=== PATIENT | female | born 1950 ===

== ENCOUNTER 2021-04-26 09:15 | Inpatient (IN) | payer OTHER ==
[~2021-04-26] VITALS: Ht 160 cm; Wt 65.8 kg
[2021-04-26] MEDS ORDERED: PEPCID AC20 MG PO (12:56)
[2021-04-26] MEDS ORDERED: COMPLEX B-1001 EACH PO (12:56)
[2021-04-26] MEDS ORDERED: COZAAR100 MG PO (12:57)
[2021-04-26] MEDS ORDERED: AVASTATIN (12:57)
[2021-04-28] MEDS ORDERED: ABATINEX680 MG (08:38)
[2021-04-28] MEDS ORDERED: ALENDRONATE SOD70 MG (08:38)
[2021-04-28] MEDS ORDERED: MONTELUKAST SOD10 MG (08:38)
[2021-04-28] MEDS ORDERED: SPIRONOLACTONE50 MG (08:38)
[2021-04-28] MEDS ORDERED: HYDROCHLOROTH12.5 MG (08:38)
[2021-04-28] MEDS ORDERED: DEXAMETHASO4 MG/1 M1 (08:39)
[2021-04-28] MEDS ORDERED: DIPHENHYDR50 MG/1 M1 (08:39)
[2021-04-28] MEDS ORDERED: ONDANSETRON4 MG/2 M5 (08:39)
[2021-04-28] MEDS ORDERED: CARBOPLATI10 MG/1 ML (08:39)
[2021-04-28] MEDS ORDERED: PACLITAXEL6 MG/1 ML (08:39)
[2021-04-28] MEDS ORDERED: MVASI25 MG/1 ML (08:39)
[2021-04-28] MEDS ORDERED: FAMOTIDINE20 MG/2 M1 (08:39)
[2021-04-28] MEDS ORDERED: REFRESH TEARS15 ML (08:40)
[2021-04-28] MEDS ORDERED: ATORVASTATIN CA20 MG (08:41)
== END 2021-05-05 16:29 | disposition home or self-care (01) | DRG 737 ==
LOC: O/R 04-28 05:30 → OB/GYN 04-28 08:45
PROVIDERS: ADMIT Specialist; ATTEND Specialist
PROC: 0UT20ZZ Resection of Bilateral Ovaries, Open Approach (ICD-10-PCS; 2021-04-28)
PROC: 0UT70ZZ Resection of Bilateral Fallopian Tubes, Open Approach (ICD-10-PCS; 2021-04-28)
PROC: 0DBU0ZZ Excision of Omentum, Open Approach (ICD-10-PCS; 2021-04-28)
PROC: 07BC0ZZ Excision of Pelvis Lymphatic, Open Approach (ICD-10-PCS; 2021-04-28)
PROC: 0TBB0ZX Excision of Bladder, Open Approach, Diagnostic (ICD-10-PCS; 2021-04-28)
PROC: 0DBW0ZX Excision of Peritoneum, Open Approach, Diagnostic (ICD-10-PCS; 2021-04-28)
PROC: 0UBF0ZX Excision of Cul-de-sac, Open Approach, Diagnostic (ICD-10-PCS; 2021-04-28)
PROC: 0UT90ZZ Resection of Uterus, Open Approach (ICD-10-PCS; principal; 2021-04-28 08:45)
PROC: 30233N1 Transfusion of Nonautologous Red Blood Cells into Peripheral Vein, Percutaneous Approach (ICD-10-PCS; 2021-04-30)
DX: C56.3 Malignant neoplasm of bilateral ovaries (principal); K91.89 Other postprocedural complications and disorders of digestive system; K56.0 Paralytic ileus; D62 Acute posthemorrhagic anemia; C77.5 Secondary and unspecified malignant neoplasm of intrapelvic lymph nodes; C79.89 Secondary malignant neoplasm of other specified sites; D64.9 Anemia, unspecified; C54.9 Malignant neoplasm of corpus uteri, unspecified; I10 Essential (primary) hypertension